=== PATIENT | female | born 1965 | race Caucasian/White ===

== ENCOUNTER → 2023-07-26 08:59 | Outpatient (REF) | payer BC, SELFPAY | LOC: HWRAD 08:59 | PROVIDERS: ATTENDING PHYSICIAN Nurse Practitioner | DX: M25.551 Pain in right hip (principal) | CPT/HCPCS: 73502 ==

== ENCOUNTER → 2024-10-04 08:31 | Outpatient (REF) | payer BC, SELFPAY | LOC: HWWDC 08:31 | PROVIDERS: REFERRING PHYSICIAN Obstetrics & Gynecology Gynecology | DX: Z12.31 Encounter for screening mammogram for malignant neoplasm of breast (principal) | CPT/HCPCS: 77063; 77067 ==

== ENCOUNTER 2024-11-17 09:31 | Emergency (ER) | payer BC, SELFPAY ==
[2024-11-17] VITALS (33 sets, daily range): BP systolic 91–163; BP diastolic 52–114; BMI 22.5
--- NOTE | 2024-11-17 09:47 | ED.GENMED ---
History of Present Illness
General
Chief Complaint: Musculo-Skeletal Complaint
Source: patient
Exam Limitations: none
Time Seen by Provider: 11/17/24 09:35
History of Present Illness
History of Present Illness:
Patient felt a pop in her right hip while exercising. No history of same. History of hip replacement/revision 8 months ago. Has had no issues since then. Severe pain of the right hip. Feels dislocated to her. No other injury or complaint.
Patient gets nauseous from narcotics but does not have a true allergic reaction from them
Past History
Past History
ED Past Surgical History: Orthopedic
Review of Systems
Review of Systems
All Other Systems: Not applicable
Respiratory: Reports no symptoms
Cardiac: Reports no symptoms
ABD/GI: Reports no symptoms
Phy Exam
Physical Exam
Physical Exam:
GENERAL: Alert and oriented in no apparent distress, but does appear uncomfortable
EYE: Orbits normal.
NECK: Supple
ENT: Pharynx without erythema. No removable plates
CARDIAC: Regular rate and rhythm without any obvious murmurs.
LUNGS: Clear breath sounds,normal
NEUROLOGICAL: Alert and oriented , grossly non-focal
SKIN: Warm and dry, no rash or lesion, no discoloration, skin intact.
MUSCULOSKELETAL: Right hip flexed. Some shortening. Good distal pulses and color
PSYCH: Normal and appropriate interaction.
Course
Orders/Labs/Results
Orders:
Orders
11/17/24 09:34
Hip, Right 2-3 Views [CR Hip - RT w/wo Pel 2-3 Vw*] Urgent
Comment:
Reason For Exam: pain
Include a pelvis x-ray?: Yes
11/17/24 09:45
HYDROmorphone [Dilaudid] 0.5 mg IV NOW STA
Ondansetron Injectable [Zofran] 4 mg IV NOW STA
11/17/24 10:51
Propofol [Diprivan] 20 ml .ROUTE .STK-MED
11/17/24 11:23
HYDROmorphone [Dilaudid] 0.5 mg .ROUTE .STK-MED ONE
Propofol [Diprivan] 20 ml .ROUTE .STK-MED
11/17/24 11:25
HYDROmorphone [Dilaudid] 0.5 mg IV NOW STA
11/17/24 12:15
Hip, Right 1 View [CR Hip - RT without Pel 1 Vw] Stat
Comment:
Reason For Exam: sp closed reduction
Vital Signs
Initial and Last Documented VS:
Initial Vital Signs
BP
163/79
11/17/24 09:34
Last Documented Vital Signs
Pulse Resp BP Pulse Ox
55 15 152/92 99
11/17/24 11:45 11/17/24 11:45 11/17/24 11:41 11/17/24 11:45
Procedures
Moderate Sedation
ASA Risk Score: Class I
Chart and allergies reviewed: Yes
Consent for anesthesia obtained: Yes
Time out completed (validating right patient & procedure): Yes
Moderate Sedation Start Time(when first medication is given): 10:57
History of difficult intubation: No
Airway free of obstruction: Yes
Patient has a gag reflex: Yes
Patient is able to open mouth: Yes
Patient has no dentures: Yes
Patient has no loose teeth: Yes
Medication administered by Provider during Moderate Sedation: IV Propofol (mg)
Total dose administered: 160
Time drug administered: 10:57
Moderate Sedation Procedure End Time: 11:10
Joint/Fracture Reduction
Right Hip:
Indication for procedure:: Dislocated right hip
Procedure completed by: Myself
Consent form signed: Yes
Anesthesia/sedation: Moderate sedation
Injury was: closed
Further treatement: needs further treatment
Post reduction exam: unstable
Normal distal neurovascular exam?: Yes
MDM/Problems Addressed
Differential Diagnosis Includes:
0950...Most consistent with a hip dislocation. Discussed pain management with the patient. She states she would like the narcotic stronger pain medication even though it makes her nauseous. Not describing a true allergic reaction. She is aware
that this historically has made her nauseous. After x-ray we will try to contact her orthopedist.
*Radiology
Radiology exam reviewed: preliminary read by ED provider (Dislocated right hip.)
*Pulse Oximetry
SaO2: 98
Oxygen Mode of Delivery: Room air
Patient hypoxic: no (99)
*Critical Care Note
Total Time (30-74mins, 75-104mins- exclusive of procedures): Not Applicable
Update Note
Update Note:
1028.... Dislocated right hip. Risk of procedure explained. Risk of sedation with apnea aspiration etc. Risk of the procedure including inability to replace the dislocated femur, fracture, dislodgment of the prosthesis. Neurovascular issue. All
explained. We have placed a call to patient's orthopedist. As we set up for the reduction we will await his call back however if he does not call back in a reasonable period we will go ahead with the procedure
Patient was sedated twice. First attempt included my attempt at reduction. We were unable to get her reduced despite multiple techniques. She did require some bagging with apnea towards the end of the sedation. Discussed with orthopedics and
orthopedics at [facility]. A second attempt was made with orthopedic surgery here.
Time out for attempt #2 when I did the moderate sedation but orthopedics did a reduction
1205 time out
1206 50 mg propofol
1209 50 mg propofol
1210 30 mg propofol
Patient was reduced by orthopedics. Knee immobilizer was placed.
1315... Patient rechecked. Fully awake and alert. Stable vital signs. Feels great. Will start working on discharge.
ED Attending Note
-
Portions of this chart may have been created with voice recognition software.� Occasional wrong word or��sound alike� substitutions may have occurred due to the inherent limitations of voice recognition software.
Discharge Plan
Departure
Patient Disposition: Home (Routine Discharge)
Date of Disposition: 11/17/24
Time of Disposition: 13:13
Patient with high blood pressure during this ER visit?: Yes
Discharge Problem:
Right hip dislocation, History of hip prosthesis
Instructions: Hip Dislocation (DC), MODERATE SEDATION ADULT, BLOOD PRESSURE
Referrals:
UNKNOWN - PT DOES,NOT KNOW [Family Provider]
Activity Restrictions/Additional Instructions:
Call your orthopedist tomorrow morning for close follow-up
Interventions
Interventions:
*Risk Screen - Suicide Last Done: 11/17/24 09:35
*General Assessment Last Done: 11/17/24 09:35
*Neglect/Abuse Screening Last Done: 11/17/24 09:35
*ED- Fall Risk Assessment Last Done: 11/17/24 09:35
*ED COVID-19 Vaccine History Last Done: 11/17/24 09:35
ED-Musculoskeletal Assessment Last Done: 11/17/24 09:41
Discharge Date and Time
Print Language: FRENCH
[2024-11-17] MEDS: ZOFRAN 4 MG IV (09:49)
[2024-11-17] MEDS: DILAUDID 0.5 MG IV ×2 (09:52→11:26)
--- NOTE | 2024-11-17 12:00 | CON.ORTHO ---
Addendum entered and electronically signed by Glenn López MD 11/17/24 12:32:
Post reduction hip xray shows closed reduction of right prosthetic hip joint without periprosthetic fracture.
Recommendations:
Strict posterior hip precautions - discussed with patient
WBAT
Pain control
Follow up Dr. Anibal Martin's team in the next week or two
Addendum entered and electronically signed by Glenn López MD 11/17/24 12:17:
Procedure: With patient consent and with conscious sedation, the right hip was flexed, internally rotated, and adducted. Gentle traction was applied and the hip was closed reduced with an audible and palpable clunk. Leg length was symmetric
afterward. R hip xray ordered to confirm.
Original Note:
Consultation
-
Date/Time Consultation Requested: 11/17/2024 1111
Date/Time Consultation Performed: 11/17/2024 1201
Requesting Provider: Dr. Gaviria
Performing Provider: Saurav López
Reason for Consultation: R hip dislocation
Consultation - Orthopedics
History
Orthopedic Surgery Note
CC: R prosthetic hip dislocation
HPI: 59F with history of R GILSON 14 years ago. 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 She denies periop complications. She was doing very well. She was exercising doing a prone hip stretch. She was
flexing her knee posteriorly and as she was extending the knee, she felt a pop and acute onset pain and inability to weight bear. She presented to ED and was noted to have a prosthetic dislocation at the hip. No distal paraesthesias.
PMH/PSH: history of GILSON 14y ago and 8 months ago
Medications: reviewed
Family History: Family history was reviewed. Noncontributory
Social history: Nonsmoker, no illicit drugs
Exam
General appearance: Pleasant. No acute distress.
Head: Normocephalic/atraumatic
Nose: No lesions or discharge.
Skin: No obvious rashes or open wounds
Lungs: No audible wheezing, no cough or sputum production
Musculoskeletal:
RLE:
skin intact without open wounds
healed incision
fires ehl/fhl/ta/gs
sensation intact to light touch distally s/s/sp/dp/t
Toes wwp, 1+ DP
No tenderness over bony prominences or with passive joint ROM
RLE:
skin intact without open wounds
fires ehl/fhl/ta/gs
sensation intact to light touch distally s/s/sp/dp/t
Toes wwp, 1+ DP
leg short, flexed, and internally rotated
Imaging:
Xrays: R hip and pelvis xray 11/17/2024 were reviewed by me. These show right prosthetic hip dislocation, posterior, with fixed bearing head. No signs of osteolysis or periprosthetic fracture
AP:
59F 8 months sp R revision GILSON with R prosthetic hip dislocation sustained today. Plan for attempt at closed reduction.
> 75 minutes was spent reviewing the clinical information, evaluating the patient, and formulating clinical plan.
Allergies / Home Medications
Allergy/AdvReac Type Severity Reaction Status Date / Time
morphine Allergy Vomiting Verified 11/17/24 09:34
Vital Signs / Lab Results
Pulse Resp BP Pulse Ox
55 15 152/92 99
11/17/24 11:45 11/17/24 11:45 11/17/24 11:41 11/17/24 11:45
== END 2024-11-17 13:30 | disposition home or self-care (01) ==
LOC: EMR 09:31
PROVIDERS: EMERGENCY PHYSICIAN Emergency Medicine; OTHER PHYSICIAN Orthopaedic Surgery
DX: T84.020A Dislocation of internal right hip prosthesis, initial encounter (principal); X58.XXXA Exposure to other specified factors, initial encounter
CPT/HCPCS: 27265; 99152; 96374; 96375; 96376; 99285; 73501; 73502